=== PATIENT | female | born 1990 | race African-American/Black ===

== ENCOUNTER 2019-10-16 10:33 | Emergency (ER) | payer SELFPAY ==
[~2019-10-16] VITALS: Ht 167.6 cm; Wt 120.0 kg
--- NOTE | 2019-10-16 12:10 | PHYS DOC ---
General Adult EDM: Chief Complaint: COUGH HPI: HPI: Patient is a 29 year old female who presented to ER today for evaluation of sore throat, cough since yesterday. Patient feels chill, body ache. Patient said she did not know if she been exposed to anybody who tested positive for COVID-19. Patient denies any abdominal pain, no nausea vomiting, no headache. Review of Systems: Review of Systems: Constitutional: Denies fever, positive for chills. [] Eyes: Denies change in visual acuity. [] HENT: Denies nasal congestion , positive sore throat. [] Respiratory: Positive for cough, sore throat Cardiovascular: Denies chest pain or edema. [] GI: Denies abdominal pain, nausea, vomiting, bloody stools or diarrhea. [] : Denies dysuria. [] Musculoskeletal: Denies back pain or joint pain. [] Integument: Denies rash. [] Neurologic: Denies headache, focal weakness or sensory changes. [] Endocrine: Denies polyuria or polydipsia. [] Lymphatic: Denies swollen glands. [] Psychiatric: Denies depression or anxiety. [] Heart Score: Risk Factors: Risk Factors: DM, Current or recent (<one month) smoker, HTN, HLP, family history of CAD, obesity. Risk Scores: Score 0 - 3: 2.5% MACE over next 6 weeks - Discharge Home Score 4 - 6: 20.3% MACE over next 6 weeks - Admit for Clinical Observation Score 7 - 10: 72.7% MACE over next 6 weeks - Early Invasive Strategies Physical Exam: PE: Constitutional: Well developed, well nourished, no acute distress, non-toxic appearance. [] HENT: Normocephalic, atraumatic, bilateral external ears normal, oropharynx moist, no oral exudates, nose normal. [] Eyes: PERRLA, EOMI, conjunctiva normal, no discharge. [] Neck: Normal range of motion, no tenderness, supple, no stridor. [] Cardiovascular:Heart rate regular rhythm, no murmur [] Lungs & Thorax: Bilateral breath sounds clear to auscultation [] Abdomen: Bowel sounds normal, soft, no tenderness, no masses, no pulsatile masses. [] Skin: Warm, dry, no erythema, no rash. [] Back: No tenderness, no CVA tenderness. [] Extremities: No tenderness, no cyanosis, no clubbing, ROM intact, no edema. [] Neurologic: Alert and oriented X 3, normal motor function, normal sensory function, no focal deficits noted. [] Psychologic: Affect normal, judgement normal, mood normal. [] EKG: EKG: [] Radiology/Procedures: Radiology/Procedures: [facility] [address] [place] [address] IMAGING REPORT Signed PATIENT: SINCERE PEREZ ACCOUNT: [id number] : 1990 LOCATION: ER AGE: 29 SEX: F EXAM STATUS: REG ER ORD. PHYSICIAN: LESLYE HYMAN DO REASON: soa PROCEDURE: CHEST AP ONLY CHEST AP ONLY History: Shortness of air Comparison: None. Findings: Single view of the chest is submitted. There is no infiltrate, pneumothorax, or effusion. The pericardial cardiac silhouette is within normal limits in size. Impression: 1. There is no radiographic evidence of acute cardiopulmonary disease. Electronically signed by: Alecia Sherman MD (10/16/2019 12:43 PM) [facility] DICTATED and SIGNED BY: ALECIA SHERMAN MD DATE: 10/16/19 1243 [] Course & Med Decision Making: Course & Med Decision Making Pertinent Labs and Imaging studies reviewed. (See chart for details) [] Dragon Disclaimer: Dragon Disclaimer: This electronic medical record was generated, in whole or in part, using a voice recognition dictation system. Departure Departure Impression: Primary Impression: Bronchitis Disposition: 01 HOME, SELF-CARE Condition: STABLE Referrals: GUICHO KIMBLE APRN (PCP) please follow up with your doctor next week Patient Instructions: Acute Bronchitis Scripts Azithromycin (ZITHROMAX) 250 Mg Tablet 1 PKG PO UD, #6 TAB Prov: LESLYE HYMAN DO 10/16/19 LESLYE HYMAN DO October 16, 2019 12:10
[2019-10-16 12:12] VITALS: BP 122/66
--- NOTE | 2019-10-16 12:46 | RAD ---
CHEST AP ONLY History: Shortness of air Comparison: None. Findings: Single view of the chest is submitted. There is no infiltrate, pneumothorax, or effusion. The pericardial cardiac silhouette is within normal limits in size. Impression: 1. There is no radiographic evidence of acute cardiopulmonary disease. Electronically signed by: Jose R Cain MD (10/16/2019 12:43 PM) [facility]
[2019-10-16] MEDS ORDERED: AZIT250T PO (12:56)
== END 2019-10-16 13:25 | disposition home or self-care (01) ==
LOC: EDBD 10:33 → ER 10:33
DX: J40 Bronchitis, not specified as acute or chronic (principal); R05 Cough; R68.83 Chills (without fever)
CPT/HCPCS: 71045; 99283

== ENCOUNTER 2020-01-08 13:14 | Emergency (ER) | payer MEDICAID ==
[~2020-01-08] VITALS: Ht 167.6 cm; Wt 113.6 kg
[~2020-01-08 13:14] MED LIST: AZIT250T PO
[2020-01-08] MEDS ORDERED: ONDANSETRON ODT 4 MG TAB.RAPDIS. PO ONE (14:00)
[2020-01-08] MEDS ORDERED: HYDROcodone/APAP 5/325MG 1 TAB TABLET PO ONE (14:30)
--- NOTE | 2020-01-08 14:31 | RAD ---
KUB History: Reason: CONSTIPATION, ABDOMINAL PAIN,PT STATES UPPER ABD. PAIN FOR 3 WEEKS / Spl. Instructions: / History: Technique: Supine views the abdomen. Comparison: None. Findings: Several nondilated air-filled loops of small bowel within the mid abdomen. Air stool scattered throughout the imaged colon. Mild colonic stool burden. Imaged lung bases are unremarkable. Impression: 1. Nonobstructed bowel gas pattern. Mild colonic stool burden. Electronically signed by: Parth Reddy DO (01/08/2020 2:28 PM) [facility]
--- NOTE | 2020-01-08 14:37 | PHYS DOC ---
Past Medical History Past Medical History: Asthma Past Surgical History: Tubal ligation Smoking Status: Current Every Day Smoker Alcohol Use: None General Adult EDM: Chief Complaint: NAUSEA/VOMITING/DIARRHA HPI: HPI: Patient is a 29 year old female who complains of constipation and generalized stomachache for the past month. Patient states that yesterday she had a headache with body aches however that has resolved,, patient does state that she worries that she has been exposed to the COVID-19 virus and would like to be tested today. Patient states her last BM was greater than 3 days ago, rates her pain of a 4/10 pain on a 1-10 pain scale. Patient denies any fever chills, any changes in visual acuity, any nasal congestion or sore throat, any cough or shortness of breath. Has any chest pain or swelling of her extremities. Patien t denies any problems urinating, denies any vaginal discharge or STI concerns. Patient denies any back pain or pain of her joints, skin rashes, headaches, focal weaknesses or sensory changes. Patient denies any increased urination or increased thirst. Patient denies swelling of her glands, denies recent life changes, depressions or anxieties. Patient denies homicidal or suicidal ideations. Constitutional: Denies fever or chills. Eyes: Denies change in visual acuity. HENT: Denies nasal congestion or sore throat. Respiratory: Denies cough or shortness of breath. Cardiovascular: Denies chest pain or edema. GI: Complains of diffuse abdomen pain for the past month, denies nausea vomiting or diarrhea, complains of chronic constipation. States her last BM was greater than 3 days ago. : Denies dysuria. Denies STI concerns, denies vaginal discharge. Musculoskeletal: Denies back pain or joint pain. Integument: Denies rash. Neurologic: Denies headache, focal weakness or sensory changes. Endocrine: Denies polyuria or polydipsia. Lymphatic: Denies swollen glands. Psychiatric: Denies depression or anxiety. Review of Systems: Review of Systems: Constitutional: Denies fever or chills. Reports being exposed to the COVID-19 virus. Eyes: Denies change in visual acuity. HENT: Denies nasal congestion or sore throat. Respiratory: Denies cough or shortness of breath. Cardiovascular: Denies chest pain or edema. GI: Complains of diffuse abdomen pain for the past month, denies nausea vomiting or diarrhea, complains of chronic constipation. States her last BM was greater than 3 days ago. : Denies dysuria. Denies STI concerns, denies vaginal discharge. Musculoskeletal: Denies back pain or joint pain. Integument: Denies rash. Neurologic: Denies headache, focal weakness or sensory changes. Endocrine: Denies polyuria or polydipsia. Lymphatic: Denies swollen glands. Psychiatric: Denies depression or anxiety. Heart Score: Risk Factors: Risk Factors: DM, Current or recent (<one month) smoker, HTN, HLP, family history of CAD, obesity. Risk Scores: Score 0 - 3: 2.5% MACE over next 6 weeks - Discharge Home Score 4 - 6: 20.3% MACE over next 6 weeks - Admit for Clinical Observation Score 7 - 10: 72.7% MACE over next 6 weeks - Early Invasive Strategies Current Medications: Current Medications Medications (Trade) Dose Ordered Sig/Nancy Start Time Stop Time Status Last Admin Dose Admin Acetaminophen/ Hydrocodone Bitart (Lortab 5/325) 1 tab 1X ONCE 01/08/20 14:30 01/08/20 14:35 DC Dicyclomine HCl (Bentyl) 20 mg 1X ONCE 01/08/20 14:45 01/08/20 14:46 Ondansetron HCl (Zofran Odt) 4 mg 1X ONCE 01/08/20 14:00 01/08/20 14:03 DC 01/08/20 14:22 4 MG Allergies: Allergies: Allergies Coded Allergies Type Severity Reaction Last Updated Verified No Known Drug Allergies 10/16/19 No Physical Exam: PE: Constitutional: Well developed, well nourished, no acute distress, non-toxic appearance. HENT: Normocephalic, atraumatic, bilateral external ears normal, oropharynx moist, no oral exudates, nose normal. Eyes: PERRLA, EOMI, conjunctiva normal, no discharge. Pupils 5 mm. Neck: Normal range of motion, no tenderness, supple, no stridor. Cardiovascular:Heart rate regular rhythm, no murmur heart sounds S1-S2, no ab normalities per auscultation. Lungs & Thorax: Bilateral breath sounds clear to auscultation all lung chester. Abdomen: Bowel sounds hypoactive all 4 quadrants to auscultation, round, soft, no masses, no pulsatile masses. Skin: Warm, dry, no erythema, no rash. Back: No tenderness, no CVA tenderness. Extremities: No tenderness, no cyanosis, no clubbing, ROM intact, no edema. Neurologic: Alert and oriented X 3, normal motor function, normal sensory function, no focal deficits noted. Psychologic: Affect normal, judgement normal, mood normal. Current Patient Data: Vital Signs: Vital Signs Date Time Temp Pulse Resp B/P (MAP) Pulse Ox O2 Delivery O2 Flow Rate FiO2 01/08/20 13:30 97.7 71 20 130/84 (99) 98 Room Air 97.7 EKG: EKG: [] Radiology/Procedures: Radiology/Procedures: PROCEDURE: KUB KUB History: Reason: CONSTIPATION, ABDOMINAL PAIN,PT STATES UPPER ABD. PAIN FOR 3 WEEKS / Spl. Instructions: / History: Technique: Supine views the abdomen. Comparison: None. Findings: Several nondilated air-filled loops of small bowel within the mid abdomen. Air stool scattered throughout the imaged colon. Mild colonic stool burden. Imaged lung bases are unremarkable. Impression: 1. Nonobstructed bowel gas pattern. Mild colonic stool burden. Electronically signed by: Parth Reddy DO (01/08/2020 2:28 PM) [facility] DICTATED and SIGNED BY: PARTH REDDY DO DATE: 01/08/20 1428 Course & Med Decision Making: Course & Med Decision Making Pertinent Labs and Imaging studies reviewed. (See chart for details) 29-year-old female presents emergency department complaining of generalized constipation for over a month stating her last BM was greater than 3 days ago, also wants tested for the COVID-19 virus. Labs were drawn and imaging performed non-concerning for acute infectious process, however KUB read by radiologist concerning for constipation without acute bowel obstruction. COVID-19 virus test was obtained. Patient was started on magnesium citrate oral solution for constipation treatment. His given discharge instructions, and reviewed home prescriptions, patient gave verbal understanding of these, patient denied further questions or complaints. Patient discharged home. Dragon Disclaimer: Dragon Disclaimer: This electronic medical record was generated, in whole or in part, using a voice recognition dictation system. Departure Departure Impression: Primary Impression: Constipation Qualified Codes: K59.04 - Chronic idiopathic constipation Additional Impressions: Head ache Qualified Codes: R51 - Headache Person under investigation for COVID-19 Disposition: 01 HOME, SELF-CARE Condition: GOOD Referrals: GUICHO KIMBLE APRN (PCP) Patient Instructions: Constipation, Adult Additional Instructions: You have been tested for or diagnosed with COVID-19. It is an infection caused by a new type of coronavirus. COVID-19 will cause cold-like or mild flu symptoms in most. It can cause more severe symptoms like problems breathing in some. There is no treatment for COVID-19. The body will clear the infection over time. Self-care will help to ease discomfort. Steps to Take: Self-Care Rest as needed. Healthy habits may help you feel better. Steps include: Choose healthy foods including fruits and vegetables. Drink water throughout the day. Get plenty of sleep each night. If you smoke, try to quit. It may ease breathing. Avoid alcohol. Keep Others Healthy The virus can spread to others. Droplets are released every time you sneeze or cough. The droplets can get into the mouth, nose, or eyes of people near you and lead to infection. To lower the chances of spreading COVID-19 to others: Stay at home until your doctor has said it is safe to leave. If you tested positive this will mean staying isolated until both of the following are true: At least 7 days have passed since the start of illness. You are free of fever for at least 72 hours without the use of medicine. During this time: - Avoid public areas, events, or transportation. Do not return to work or school until your doctor has said it is safe to do so. - Call ahead if you need to go to a medical center. Let them know you may have COVID-19. It will help them guide you where to go. They may also ask you to wear a facemask when you come to the office. - If you call for emergency medical services, let them know you may have COVID- 19. While at home: - Try to avoid close contact with others. Stay about 6 feet away. - If possible, spend most of your time in a separate room from others. - Use a face mask if you will be in close contact with others such as sharing a room or vehicle. - Have someone wipe down common surfaces in the home. Use household tar distillation supervisor every day on areas like doorknobs, counters, or sinks. - Cough or sneeze into a tissue. Throw the tissue away right after use. If a tissue is not available, cough or sneeze into your elbow. - Wash your hands often. Wash them after sneezing or coughing. Use soap and water and wash for at least 20 seconds. Alcohol based hand drain cleaner can be used if soap and water is not available. - Do not prepare food for others. Avoid sharing personal items like forks, spoons, or toothbrushes. - Avoid close contact with pets while you are sick. There is no evidence of the virus passing to pets. This is a safety step until more is known about this virus. Isolation can be frustrating. Social interaction can help. Keep in touch with friends and family through phone and tech options. You can still interact with others in your home, just keep a safe distance of about 6 feet. Follow-up: Your doctors office will check in with you to see if there are any changes in your health. You may be asked to keep track of symptoms to share with them. They will also let you know when you are clear to be in public again. Problems to Look Out For: Contact your doctor if your recovery is not going as you expect. Get emergency care if you have problems such as: - Trouble breathing - Nonstop chest pain or pressure - Changes in awareness, confusion, or problems waking - Lips or face have bluish color - Worsening of symptoms If you think you have an emergency, call for emergency medical services right away. [facility] from [facility] Scripts Ondansetron (ONDANSETRON ODT) 4 Mg Tab.rapdis 1 TAB PO PRN Q6-8HRS, #16 TAB 0 Refills Prov: NORMA SNOW APRN 01/08/20 Magnesium Citrate (MAGNESIUM CITRATE) 296 Ml Solution 296 ML PO ONCE, #296 ML 0 Refills Prov: NORMA SNOW APRN 01/08/20 Justicifation of Admission Dx: Justifications for Admission: Justification of Admission Dx: N/A NORMA SNOW APRN Jan 08, 2020 14:37
[2020-01-08] MEDS ORDERED: DICYCLOMINE 20 MG/2 ML VIAL. IM ONE (14:45)
[2020-01-08] MEDS ORDERED: MAGNESIUM CITRATE 296 ML SOLUTION. PO ONE (15:15)
[2020-01-08] MEDS ORDERED: MAGN296S68 PO (15:18)
[2020-01-08] MEDS ORDERED: ONDA4TAB12 PO (15:18)
[2020-01-08 15:30] VITALS: BP 115/65
--- NOTE | 2020-01-10 11:51 | NUR ---
IP: Notified pt of negative COVID results. Pt verbalized understanding. No questions asked.
== END 2020-01-08 15:46 | disposition home or self-care (01) ==
LOC: ER 13:14
DX: K59.04 Chronic idiopathic constipation (principal); R51 Headache; Z20.818 Contact with and (suspected) exposure to other bacterial communicable diseases; R10.84 Generalized abdominal pain; J45.909 Unspecified asthma, uncomplicated; F17.200 Nicotine dependence, unspecified, uncomplicated; Z98.51 Tubal ligation status
CPT/HCPCS: 74018; 96372; 99285; J0500; U0003

== ENCOUNTER 2020-03-09 02:08 | Emergency (ER) | payer MEDICAID ==
[~2020-03-09] VITALS: Ht 165.1 cm; Wt 109.0 kg
[~2020-03-09 02:08] MED LIST changes: +MAGN296S68 PO; +ONDA4TAB12 PO
[2020-03-09 03:12] VITALS: BP 110/79
== END 2020-03-09 03:12 | disposition left against medical advice (07) ==
LOC: ER 02:08
DX: R20.2 Paresthesia of skin (principal); Z53.21 Procedure and treatment not carried out due to patient leaving prior to being seen by health care provider

== ENCOUNTER 2021-07-22 07:49 | Emergency (ER) | payer MEDICAID ==
[~2021-07-22] VITALS: Ht 167.6 cm; Wt 90.9 kg
[2021-07-22 08:05] VITALS: BP 131/79
[2021-07-22] MEDS ORDERED: AMOX1TAB PO (08:17)
[2021-07-22] MEDS ORDERED: HYDR-2761 PO (08:31)
--- NOTE | 2021-07-22 09:10 | PHYS DOC ---
Past Medical History Past Medical History: Asthma Past Surgical History: Tubal ligation Smoking Status: Current Every Day Smoker Alcohol Use: None General Adult EDM: Chief Complaint: DENTAL PROBLEM HPI: HPI: Patient is a 30 year old female with history of poor dentition and multiple tooth extractions who presents with dental pain. Pain has been worse over the past week. Right-sided lower dental pain. She has multiple fractured teeth in this region, and has been waiting for dental insurance to come through to pursue extraction. No fevers or chills. No difficulty with mouth opening. No difficulty with swallowing or breathing. Feels similar to previously diagnosed dental infections. Review of Systems: Review of Systems: Constitutional: Denies fever or chills. [] Eyes: Denies change in visual acuity. [] HENT: Reports right mandibular dental pain Respiratory: Denies cough or shortness of breath. [] Cardiovascular: Denies chest pain or edema. [] GI: Denies abdominal pain, nausea, vomiting, bloody stools or diarrhea. [] : Denies dysuria. [] Musculoskeletal: Denies back pain or joint pain. [] Integument: Denies rash. [] Neurologic: Denies headache, focal weakness or sensory changes. [] Lymphatic: Reports swollen lymph nodes on right side of neck. Psychiatric: Denies depression or anxiety. [] Heart Score: C/O Chest Pain: No Allergies: Allergies: Allergies Coded Allergies Type Severity Reaction Last Updated Verified No Known Drug Allergies 07/22/21 No Physical Exam: PE: Constitutional: Well developed, well nourished, no acute distress, non-toxic appearance. [] HENT: Multiple fractured teeth in the right mandibular gumline, tenderness to percussion of her most posterior molars. No palpable abscess. No submental fullness. No evidence of posterior oropharyngeal edema. Uvula midline. No stridor. She does have tenderness along the angle of the mandible exteriorly.+ Right anterior cervical lymphadenopathy. Cardiovascular:Heart rate regular rhythm, no murmur [] Lungs & Thorax: Bilateral breath sounds clear to auscultation [] Abdomen: Bowel sounds normal, soft, no tenderness, no masses, no pulsatile masses. [] Skin: Warm, dry, no erythema, no rash. [] Back: No tenderness, no CVA tenderness. [] Extremities: No tenderness, no cyanosis, no clubbing, ROM intact, no edema. [] Neurologic: Alert and oriented X 3, normal motor function, normal sensory function, no focal deficits noted. [] Psychologic: Affect normal, judgement normal, mood normal. [] Current Patient Data: Vital Signs: Vital Signs Date Time Temp Pulse Resp B/P (MAP) Pulse Ox O2 Delivery O2 Flow Rate FiO2 07/22/21 08:05 98.6 73 20 131/79 (96) 100 Room Air 98.6 EKG: EKG: [] Radiology/Procedures: Radiology/Procedures: [] Course & Med Decision Making: Course & Med Decision Making Pertinent Labs and Imaging studies reviewed. (See chart for details) Patient 30-year-old female with history of poor dentition, previous dental infections, multiple tooth extractions who presents with right sided mandibular dental pain. Several teeth are tender to percussion. No palpable abscess, no evidence of space-occupying abscess/lesion. Do not feel that she requires imaging in the emergency department. She does have several reactive lymph nodes in the anterior cervical chain. We will trial antibiotics with Augmentin. Patient will follow up either with an outpatient private dentist versus the [facility] dental school clinic in the near future. She is requesting pain medications, short course of hydrocodone Rx. [id number] Paulie Disclaimer: Paulie Disclaimer: This electronic medical record was generated, in whole or in part, using a voice recognition dictation system. Departure Departure Impression: Primary Impression: Dental infection Disposition: HOME / SELF CARE / HOMELESS Condition: STABLE Patient Instructions: Dental Pain Additional Instructions: I am concerned that you have the starting of a dental infection. You may need to have more teeth pulled. Please follow-up with your dentist or with the [facility] dental school clinic. We will start you on an antibiotic called Augmentin. Please take twice daily for the full course of the prescription. For pain tylenol and ibuprofen are best used on a schedule. Please alternate between the two. -Tylenol 1000 mg every 6 hours (do not exceed 4000 mg in one day) -Ibuprofen 400 mg every 6 hours. Take with food. Do not take for more than 1 week. For pain not controlled by the above you can take: -Hydrocodone/Tylenol 5/325 mg every 4 hours as needed. This is a narcotic medication and can make you tired and impaired. It also con tains Tylenol. So please count this towards your daily dose. Do not exceed [address] or operate machinery while taking hydrocodone. It can also make you consitpated so please consider taking docusate and miralax (as directed by over the counter directions) to prevent constipation. Please try to take as little hydrocodone as possible and wean yourself off as soon as you are able because it is an addictive medication. Scripts Hydrocodone Bit/Acetaminophen (HYDROCODONE-APAP 5-325 ) 1 Tab Tablet 1 TAB PO PRN Q6HRS PRN for PAIN, #10 TAB 0 Refills Prov: KAVON CULLEN MD 07/22/21 Amoxicillin/Potassium Clav (AUGMENTIN XR 1,000-62.5 TAB) 1 Each Tab.er.12h 1 TAB PO BID for 10 Days, #20 TAB 0 Refills with food Prov: KAVON CULLEN MD 07/22/21 KAVON CULLEN MD Jul 22, 2021 09:10
== END 2021-07-22 08:58 | disposition home or self-care (01) ==
LOC: ER 07:49
DX: K04.7 Periapical abscess without sinus (principal); J45.909 Unspecified asthma, uncomplicated; F17.200 Nicotine dependence, unspecified, uncomplicated
CPT/HCPCS: 99283

== ENCOUNTER 2021-10-04 21:12 | Emergency (ER) | payer MEDICAID ==
[~2021-10-04] VITALS: Ht 165.1 cm; Wt 81.8 kg
[~2021-10-04 21:12] MED LIST changes: +AMOX1TAB PO; +HYDR-2761 PO
[2021-10-04 21:30] VITALS: BP 138/85
[2021-10-04 22:04] LABS: BACTERIA,URINE FEW /HPF (0-FEW); RBC,URINE 0 /HPF (0-2)
[2021-10-04] MEDS ORDERED: METR-34 PO (23:15)
--- NOTE | 2021-10-04 23:15 | PHYS DOC ---
Past Medical History Past Medical History: Asthma Past Surgical History: Tubal ligation Smoking Status: Current Every Day Smoker Alcohol Use: None Drug Use: None General Adult EDM: Chief Complaint: URINARY FREQUENCY HPI: HPI: 31-year-old female presents with report of pain on urination with vaginal discomfort that is been ongoing for the past 2 weeks. Patient reports concern for bacterial vaginosis. Patient reports she has been using vaginal suppositories as well as vaginal douche without improvement. Patient also has been using [id number] medication for yeast infection. Patient reports symptoms have continued. Denies fever or chills. Denies trauma. Reports monogamous relationship with her . Denies concern for STDs. Review of Systems: Review of Systems: Constitutional: Denies fever or chills Eyes: Denies redness or eye pain HENT: Denies nasal congestion or sore throat Respiratory: Denies cough or shortness of breath Cardiovascular: Denies chest pain or palpitations GI: Denies abdominal pain, nausea, or vomiting /ACID ADJUSTER: Denies hematuria or ; reports vaginal discharge and dysuria Musculoskeletal: Denies back pain or joint pain Integument: Denies rash or skin lesions Neurologic: Denies headache, focal weakness or sensory changes Complete systems were reviewed and found to be within normal limits, except as documented in this note. Heart Score: C/O Chest Pain: N/A Allergies: Allergies: Allergies Coded Allergies Type Severity Reaction Last Updated Verified No Known Drug Allergies 07/22/21 No Physical Exam: PE: Constitutional: Well developed, well nourished, no acute distress, non-toxic appearance HENT: Normocephalic, atraumatic Eyes: Conjunctiva normal, no discharge Neck: Normal range of motion, supple Lungs & Thorax: No respiratory distress, equal chest rise and fall Abdomen: Soft, no tenderness, no guarding/rebound tenderness/distention Pelvic exam: Tammy Tirado RN, external genitalia normal, scant white discharge noted to vaginal vault, no cervical motion tenderness, no adnexal tenderness Skin: Warm, dry, no erythema, no rash Back: No tenderness, no CVA tenderness Extremities: No tenderness, ROM intact, no edema Neurologic: Alert and oriented X 3, no focal deficits noted Psychologic: Affect normal, judgment normal Current Patient Data: Labs: Laboratory Tests Test 10/04/21 21:45 Urine Collection Type Void Urine Color (Auto) Yellow Urine Turbidity Hazy Urine pH (Auto) 5.5 (<5.0-8.0) Urine Specific [place] 1.026 (1.000-1.030) Urine Protein (Auto) Negative mg/dL (Negative) Urine Glucose (Auto)(UA) Negative mg/dL (Negative) Urine Ketones (Auto) Negative mg/dL (Negative) Urine Blood (Auto) Negative (Negative) Urine Nitrite Negative (Negative) Urine Bilirubin (Auto) Negative (Negative) Urine Urobilinogen (Auto) Normal mg/dL (Normal) Urine Leukocyte Esterase (Auto) Large (Negative) Urine RBC 0 /HPF (0-2) Urine WBC 5-10 /HPF (0-4) Urine Squamous Epithelial Cells Many /LPF Urine Bacteria Few /HPF (0-FEW) Urine Mucus Slight /LPF Microbiology 10/04/21 Wet Prep - Final, Complete Vital Signs: Vital Signs Date Time Temp Pulse Resp B/P (MAP) Pulse Ox O2 Delivery O2 Flow Rate FiO2 10/04/21 21:30 97.2 59 17 138/85 (102) 100 Room Air 97.2 EKG: EKG: [] Radiology/Procedures: Radiology/Procedures: [] Course & Med Decision Making: Course & Med Decision Making Pertinent Lab studies reviewed. (See chart for details) Patient presents with dysuria and vaginal discharge with concern for bacterial vaginosis. UA without signs of infection. Urine negative. Pelvic exam performed. Chlamydia/gonorrhea cultures pending. Patient declined empiric antibiotic therapy. Wet mount positive for bacterial vaginosis. Flagyl provided. Patient stable for discharge with outpatient follow-up with PCP. Discussed findings and plan with patient and family, who acknowledge understanding and agreement. Paulie Disclaimer: Paulie Disclaimer: This electronic medical record was generated, in whole or in part, using a voice recognition dictation system. Departure Departure Impression: Primary Impression: Bacterial vaginosis Disposition: HOME / SELF CARE / HOMELESS Condition: STABLE Referrals: NO PCP (PCP) Patient Instructions: Bacterial Vaginosis, [id number] Scripts Metronidazole (METRONIDAZOLE) 500 Mg Tablet 1 TAB PO BID for 7 Days, #14 TAB 0 Refills Prov: NORMA VERA DO 10/04/21 NORMA VERA DO October 04, 2021 23:15
[2021-10-04] MEDS ORDERED: metroNIDAZOLE 500 MG TABLET PO ONE (23:30)
[2021-10-07 15:15] LABS: GC PROBE Negative (Negative)
== END 2021-10-04 23:50 | disposition home or self-care (01) ==
LOC: ER 21:12
DX: N76.0 Acute vaginitis (principal); B96.89 Other specified bacterial agents as the cause of diseases classified elsewhere; J45.909 Unspecified asthma, uncomplicated; F17.200 Nicotine dependence, unspecified, uncomplicated; Z98.51 Tubal ligation status
CPT/HCPCS: 81001; 87086; 87491; 87591; 99284; Q0111